=== PATIENT | female | born 1975 | race Caucasian/White ===

== ENCOUNTER 2023-04-18 16:35 | Emergency (ER) | payer BC, OTHER ==
[2023-04-18 16:41] VITALS: BP 150/88; PULSE 77; RESP 19; TEMP 98.6; BMI 34.7
[2023-04-18 18:30] LABS: URINE APPEARANCE CLEAR; URINE BILIRUBIN NEGATIVE (NEGATIVE); URINE COLOR YELLOW; URINE GLUCOSE (UA) NEGATIVE (NEGATIVE); URINE KETONE NEGATIVE (NEGATIVE); URINE LEUK ESTERASE NEGATIVE (NEGATIVE); URINE NITRITE NEGATIVE (NEGATIVE); URINE PROTEIN NEGATIVE (NEGATIVE); URINE UROBILINOGEN 0.2 mg/dL (0.2-1.0)
[2023-04-18 18:31] LABS: HCG,QUALITATIVE URINE Negative
[2023-04-19 10:24] LABS: SYPHILIS W/ RPR CONF NON-REACTIVE (NONREACTIVE)
[2023-04-19 11:01] LABS: HIV INTERPRETATION NEGATIVE (NEGATIVE)
== END 2023-04-18 18:21 | disposition home or self-care (01) ==
LOC: JERFT 16:35
DX: K40.90 Unilateral inguinal hernia, without obstruction or gangrene, not specified as recurrent (principal); R59.1 Generalized enlarged lymph nodes; Z11.3 Encounter for screening for infections with a predominantly sexual mode of transmission
CPT/HCPCS: 36415; 81003; 84703; 86704; 86780; 86803; 87086; 87340; 87389; 87491; 87517; 87591; 87661; 99283-25